=== PATIENT | male | born 2000 | race African-American/Black ===

== ENCOUNTER 2022-01-27 23:23 | Emergency (ER) | payer OTHER ==
[~2022-01-27] VITALS: Ht 180.3 cm; Wt 75.0 kg
[2022-01-28 01:45] VITALS: BP 154/70
== END 2022-01-28 02:00 | disposition short-term general hospital (02) ==
LOC: EMS 23:23
DX: S72.301A Unspecified fracture of shaft of right femur, initial encounter for closed fracture (principal); Z91.09 Other allergy status, other than to drugs and biological substances; X58.XXXA Exposure to other specified factors, initial encounter; Y93.67 Activity, basketball; Y92.89 Other specified places as the place of occurrence of the external cause; Y99.8 Other external cause status
CPT/HCPCS: 73502; 73552; 93005; 99285